=== PATIENT | male | born 1935 | race Caucasian/White ===

== ENCOUNTER 2016-09-09 22:05 | Inpatient (IN) | payer MEDICARE, BC ==
--- NOTE | ~2016-09-09 | HP ---
History And Physical [facility] [address] [place]. [address] NAME: STANLEY VERDUZCO : 37 STATUS : ADM IN [facility]#: [id number] AGE: 81 ADM/REG DATE : 09/10/16 MR#: [id number] REPORT SERV DATE: 09/10/16 DICTATED BY: STANLEY LOZANO DATE: 09/10/16 REPORT STATUS : Draft TRANSCRIBED BY: MODL DATE: 09/10/16 DATE OF ADMISSION: 09/09/2016 POINT OF ENTRY: [facility] Emergency Department. CHIEF COMPLAINT: Fevers, confusion, and lethargy. HISTORY OF PRESENT ILLNESS: Mr. Verduzco is an 81-year-old gentleman with a history of Parkinson disease, vascular dementia, history of multiple prior cerebrovascular accidents and TIAs, chronic kidney stage III to stage IV as well as dysphagia who is brought to the emergency room today by his for reports of low-grade fevers with associated confusion as well as sedation and lethargy. has noted for the past two days that he has been intermittently confused thinking that he was at the hospital. She stated that beginning about 2 p.m. today, she started to notice low-grade fevers as high as 100.4 degrees Fahrenheit as well as generally being unresponsive and sedated and lethargic. [facility] came out to evaluate patient today and recommended that he be transferred to the emergency department given concern for underlying infection and possible sepsis. The patient is confused and very hard of hearing and unfortunately unable to provide any history. All history is obtained from the patient's as well as review of [facility], [facility], and the ER record. states that he is always short of breath. She does not appreciate any recent changes. He has not been coughing or producing sputum. During his recent hospitalization in July, he did fail his swallow study. However, he continues to eat by mouth. She states that he occasionally will get choked up, but she has not witnessed any jeffrey aspiration events in the last few days. Initial evaluation in the emergency department notable for a blood pressure 90/56, but was afebrile. Labs noted for a white count 17,200. Chest x-ray concerning for right greater than left lower lobe infiltrate. CT scan of the brain was unremarkable for any acute changes. The patient was subsequently admitted to the Hospitalist Service for further evaluation and management. REVIEW OF SYSTEMS: Comprehensive review of systems otherwise negative unless listed in history of present illness. PAST MEDICAL HISTORY: 1. Parkinson disease. 2. Vascular dementia. 3. Dysphagia and aspiration risk. 4. Insulin-dependent diabetes mellitus type 2. Hemoglobin A1c of 7.3 with associated diabetic neuropathy and retinopathy. 5. Peripheral vascular disease. 6. Chronic kidney stage III to stage IV. Baseline creatinine 1.8 to 2.0. History And Physical [address] [address] NAME: STANLEY VERDUZCO : 37 STATUS : ADM IN PAT#: [id number] AGE: 81 ADM/REG DATE : 09/10/16 MR#: [id number] REPORT SERV DATE: 09/10/16 DICTATED BY: STANLEY LOZANO DATE: 09/10/16 REPORT STATUS : Draft TRANSCRIBED BY: EPIFANIO DATE: 09/10/16 7. Coronary artery disease with prior coronary artery bypass grafting. 8. Chronic systolic congestive heart failure with ejection fraction of 40%. 9. History of multiple prior cerebrovascular accidents and TIAs. 10.Hypertension. 11.Peptic ulcer disease. 12.Peripheral neuropathy. 13.Severe hearing impairment. SURGICAL HISTORY: 1. Right BKA. 2. Femoral-popliteal. 3. CABG. 4. TURP. 5. Cholecystectomy. ALLERGIES: IV CONTRAST, CODEINE, AND NARCOTICS. HOME MEDICATIONS: 1. Aspirin 325 mg at bedtime. 2. Calmoseptine ointment topical p.r.n. 3. Lasix 20 mg daily. 4. Gabapentin 300 mg b.i.d. 5. Gabapentin 300 mg p.r.n. 6. Hydralazine 12.5 mg at bedtime. 7. Insulin sliding scale. 8. Lantus 14 units b.i.d. 9. Lopressor 25 mg at bedtime. 10.Omeprazole 20 mg b.i.d. 11.Pravastatin 10 mg at bedtime. 12.Risperdal 1 mg b.i.d. 13.Sertraline 100 mg b.i.d. 14.Zinc oxide topical daily p.r.n. SOCIAL HISTORY: Denies any tobacco, alcohol, or illicits. FAMILY MEDICAL HISTORY: Mother with coronary artery disease. Father with congestive heart failure and coronary artery disease. Sibling with history of esophageal cancer. LABS AND IMAGIN. White count 17.2, hemoglobin 11.7, hematocrit is 35.8, platelet count is 309, INR 1.1. 2. Sodium is 138, potassium 4.6, chloride 99, carbon dioxide 29, BUN 59, creatinine 2.24, glucose is 207, calcium 9.2, protein 8.1, albumin is 2.9, bilirubin is 0.6, ALT is 15, AST 14, alkaline phosphatase is 101. 3. Lipase is 58. 4. Lactic acid 1.7. 5. BNP is 219. 6. Flu swab was negative. History And Physical [address] [address] NAME: STANLEY VERDUZCO : 37 STATUS : ADM IN [facility]#: [id number] AGE: 81 ADM/REG DATE : 09/10/16 MR#: [id number] REPORT SERV DATE: 09/10/16 DICTATED BY: STANLEY LOZANO DATE: 09/10/16 REPORT STATUS : Draft TRANSCRIBED BY: EPIFANIO DATE: 09/10/16 Chest x-ray per my review shows some mild cardiomegaly as well as right greater than left lower lobe infiltrates. CT scan of the brain shows no acute intracranial abnormality, does show evidence of an old left frontal cerebrovascular accident as well as generalized atrophy as well as chronic involutional changes and deep white matter changes. PHYSICAL EXAMINATION: VITAL SIGNS: Temperature is 98.0 degrees Fahrenheit, pulse is 78, respirations 18, saturating 95% on room air. Blood pressure is 90/56. On recheck, blood pressure is 106/42, pulse of 59. GENERAL: The patient is awake. He is somewhat sedated and lethargic, and extremely hard of hearing. He is a chronically ill-appearing, elderly male. is not at bedside. HEENT: Atraumatic and normocephalic. Slightly dry mucous membranes. Pupils are equal, round, reactive to light and accommodation. Extraocular eye movements are intact. No scleral icterus. NECK: No jugular venous distention. No carotid bruits. CARDIAC: Regular rate and rhythm. No murmurs or gallops. Normal S1, S2. LUNGS: Poor inspiratory effort with some decreased breath sounds in bilateral bases. ABDOMEN: Soft, nontender, nondistended. Good bowel sounds. No rebound, guarding, rigidity. EXTREMITIES: Status post right BKA. Left lower extremity is warm and well perfused. No cyanosis, clubbing, or edema. SKIN: Warm and dry. PSYCH: Difficult to assess given patient is hard of hearing as well as altered mental status. NEURO: He is somewhat sedated and lethargic, but awakens to verbal stimuli. Neurologic exam is very limited given his severe hard of hearing. Cranial nerves 2-12 appear to be grossly intact. Speech is normal. Gait not assessed. ASSESSMENT AND PLAN: Mr. Verduzco is an 81-year-old gentleman with multiple medical comorbidities, who presents with a one-day history of low-grade fevers, sedation, lethargy, and confusion, and found to have evidence of pneumonia as well as sepsis with associated toxic metabolic encephalopathy. PROBLEM LIST: 1. Pneumonia, concern for aspiration pneumonia. 2. Sepsis. 3. Toxic metabolic encephalopathy. 4. Acute kidney injury on chronic kidney stage 4. 5. History of dysphagia and aspiration risk. 6. Insulin-dependent diabetes mellitus type 2. 7. Chronic systolic congestive heart failure ejection fraction 40%. PLAN: 1. Pneumonia, concern for possible aspiration given recent failed swallow study. We will place the patient on IV Zosyn. We will try to obtain sputum culture, check urinary History And Physical [address] [address] NAME: STANLEY VERDUZCO : 37 STATUS : ADM IN [facility]#: [id number] AGE: 81 ADM/REG DATE : 09/10/16 MR#: [id number] REPORT SERV DATE: 09/10/16 DICTATED BY: STANLEY LOZANO DATE: 09/10/16 REPORT STATUS : Draft TRANSCRIBED BY: MODL DATE: 09/10/16 pneumoniae antigens. Blood cultures have already been obtained. 2. Sepsis. The patient meets criteria technically with fevers as well as leukocytosis. Blood cultures have been obtained. Lactic acid within normal limits. We will check a procalcitonin level, treat with IV fluids and antibiotics. 3. Encephalopathy, likely toxic metabolic. The patient's encephalopathy is likely secondary to underlying infection and sepsis. We will hold sedating medications, checking alternative etiologies such as thyroid function studies, ammonia level, vitamin B12. CT scan of brain was unremarkable. 4. Acute kidney injury on chronic kidney stage 4. The patient's BUN and creatinine are slightly above his recent baseline. We will hold his diuretic, provide some gentle IV fluid hydration given history of chronic systolic congestive heart failure. 5. Insulin-dependent diabetes mellitus type 2. We will continue patient's long-acting insulin and put him on a long insulin sliding scale. 6. History of dysphagia and aspiration risk. We will ask Speech Therapy to see patient in consultation. In the meantime, we will make the patient nothing by mouth at least tonight. 7. DVT prophylaxis. Heparin subcu. CODE STATUS: The patient is DNR DNI with no heroic measures. This was confirmed with . JCB/MODL Stanley Lozano MD / [id number] CC: Nacho Biggs M.D.
--- NOTE | ~2016-09-09 | DS ---
Discharge Summary [facility] [address] [place]. [address] NAME: STANLEY NOVA : 37 STATUS : DIS IN PAT#: [id number] AGE: 81 ADM/REG DATE : 09/10/16 MR#: [id number] REPORT SERV DATE: 09/17/16 DICTATED BY: KELLI MELENDEZ DATE: 09/16/16 REPORT STATUS : Draft TRANSCRIBED BY: MODL DATE: 09/16/16 ADMISSION DATE: 09/10/2016 DISCHARGE DATE: 09/16/2016 CONDITION ON DISCHARGE: Stable. DISPOSITION: Transfer to SNF. DISCHARGE DIAGNOSES: 1. Aspiration pneumonia. This has resolved with the patient having received a 5-day course of IV Zosyn. Further continuation of this antibiotic is not necessary as the patient is not hypoxic and lungs sound almost 80% clear right now. 2. Other chronic medical issues that are stable at this time include chronic aspiration as the patient has had multiple strokes before, Parkinson disease, vascular dementia, which basically set the stage for chronic aspiration in this patient. However, per the patient's wishes, the patient refuses a feeding tube and is not a candidate for feeding tube placement at this time. 3. Other chronic illnesses also include insulin-dependent diabetes mellitus type 2, hemoglobin A1c of 7.3 with diabetic neuropathy and retinopathy. 4. Chronic kidney disease, stage 3 to 4 with baseline creatinine around 1.8. 5. Peripheral vascular disease. 6. Coronary artery disease, status post coronary artery bypass graft, which is stable at this time. 7. Chronic diastolic dysfunction of the heart along with some systolic component too with an ejection fraction of about 40%. 8. History of several cerebrovascular accident and transient ischemic attacks in the past. BRIEF HOSPITAL COURSE: Please see history and physical exam for detailed diagnosis on this patient. However, the patient is an 81-year-old white male patient who was admitted with the diagnosis of aspiration pneumonia. The patient was started on intravenous Zosyn appropriately and given supportive and symptomatic care. The patient's condition improved with intravenous Zosyn, and currently, he is not even requiring any supplemental oxygen and breathing comfortably. Most of his lungs are clear also. In the meantime, while in the hospital, we consulted Palliative Care per 's wishes. Dr. Hsu was kind enough to see the patient; however, after discussion, the patient is not a hospice candidate at this time according to family, so they did not want hospice involved currently at this time, but the patient's code status is a DNR status. DISCHARGE MEDICATIONS: The patient hence is being transferred to retirement facility with the following medications: 1. Aspirin 325 mg once a day. 2. Furosemide 20 mg p.o. b.i.d. 3. Gabapentin 300 mg p.o. b.i.d. and 300 mg p.o. daily p.r.n. 4. Insulin sliding scale as he takes at home. 5. Lantus insulin 14 units subcutaneously twice a day. 6. Metoprolol 25 mg twice a day, note increase. Discharge Summary [address] [place]. [address] NAME: STANLEY NOVA : 37 STATUS : DIS IN PAT#: [id number] AGE: 81 ADM/REG DATE : 09/10/16 MR#: [id number] REPORT SERV DATE: 09/17/16 DICTATED BY: KELLI MELENDEZ DATE: 09/16/16 REPORT STATUS : Draft TRANSCRIBED BY: EPIFANIO DATE: 09/16/16 The patient will also be going to rehab on: 1. Pravastatin 10 mg once at bedtime. 2. Risperdal 1 mg p.o. b.i.d. 3. Zoloft 100 mg p.o. b.i.d. 4. No hydralazine at this time. I have discontinued the 12.5 mg of hydralazine that he was taken at bedtime at this time. 5. The patient will continue taking Tylenol 650 mg every four hours p.r.n. for arm pain. Along with this, the patient will continue to use his Desitin cream, applied to groin area, and Calmoseptine p.r.n. LABORATORY DATA: The most recent labs I have on this patient include the following: On 09/16/2016, his CBC shows a WBC count of 8.8, hemoglobin 10.1, hematocrit 30.8, platelet count of 275. His electrolyte profile shows sodium of 142, potassium of 4.6, BUN 25, creatinine 1.6 which is pretty much his baseline. Blood glucose levels have all been mostly under 200 and controlled with the current insulin regimen. Blood cultures so far have come back with no growth at four days. Pertinent radiological studies mainly include a CT scan of the brain without contrast that was done that shows no acute CVA, but moderately advanced diffuse cerebral involutional changes and a large old CVA in the anterior left inferior frontal lobe. The patient also had a chest x-ray on 09/10/2016 that shows mild fullness of the pulmonary vasculature with low lung volumes and bibasilar atelectasis and status post CABG, but no acute infiltrate. However, because the patient was symptomatic, aspiration pneumonia was appropriately diagnosed without any significant x-ray changes, however. Hence, the patient is being discharged to most likely a retirement facility in stable condition, and I have spent about 40 minutes in coordinating discharge care of this patient. RRA/MODL Kelli Melendez M.D. / [id number] CC: Andrade Price M.D.
--- NOTE | ~2016-09-09 | CN ---
Consultation Report [facility] [address] [place]. [address] NAME: STANLEY NOVA : 37 STATUS : ADM IN PAT#: [id number] AGE: 81 ADM/REG DATE : 09/10/16 MR#: [id number] REPORT SERV DATE: 09/13/16 DICTATED BY: CAITLIN DURAN DATE: 09/13/16 REPORT STATUS : Draft TRANSCRIBED BY: MODL DATE: 09/13/16 PALLIATIVE CARE CONSULTATION DATE OF CONSULTATION: 09/13/2016 The patient has been previously seen by us in April of 2016. Please refer to my original consultation. The patient is readmitted to the hospital on 09/09/2016 with evidence of confusion, fevers, and lethargy. He has been found to probably have an aspiration pneumonia. He has a plethora of other medical difficulties, which will not be reiterated. He lives at home with his , who is his primary caregiver. Conversations with him in the past have centered around wanting to add hospice to his care and he has been somewhat resistant to that. He is evidently from what I can tell from the discussions the palliative care RN has been on the phone with her and it is evidently the who is now somewhat resistant to this process. Unfortunately, he continues to have progressive neurological decline, dysphagia and difficulty swallowing, and his swallowing study is reported as showing silent aspiration and deep penetration with honey by teaspoon, nectar by teaspoon with putting these evidently residual and silent aspiration as well. At this point, the is intending to take him home and continue his care. On examination today, I see him in his bed. He has clear seborrhea and have stigmata of Parkinson disease including a mask-like facies. He denies pain at this time. PHYSICAL EXAMINATION: VITAL SIGNS: Blood pressure is 180/80, his respiratory rate 16 to 18 with some slight congestion, his temperature is 99 degrees, his pulse is 70 to 74, and does have some irregularity to it. Telemetry shows sinus rhythm. HEENT: The head is normocephalic. There is some mild temporal wasting. There is greasiness about his hair and face. His pupils are reactive. His face is masklike. His speech is weak, garbled with his mouth opening probably half way to speak. LUNGS: He does have decreased breath sounds and rhonchi in both bases posteriorly. HEART: Shows a regular rate and rhythm for the most part. There is some ectopy noted. ABDOMEN: Unremarkable. EXTREMITIES: Show increased tone. There is a bit of rigidity present. He does have 1 to 2+ edema in his lower extremities. IMPRESSION, PLAN, AND DISCUSSION: This is an unfortunate 81-year-old male with progressive signs of parkinsonism now with aspiration. The was not willing to consider a PEG tube and will continue to feed him. The patient is a DNR at this point, and I suspect that Consultation Report [place] [id number] [place]. [address] NAME: STANLEY NOVA : 37 STATUS : ADM IN [facility]#: [id number] AGE: 81 ADM/REG DATE : 09/10/16 MR#: [id number] REPORT SERV DATE: 09/13/16 DICTATED BY: CAITLIN DURAN DATE: 09/13/16 REPORT STATUS : Draft TRANSCRIBED BY: MODL DATE: 09/13/16 unfortunately, he will continue to have episodes of pneumonia as his course progresses. Hospice services were discussed with her and, as noted above since he had previously rejected them, I think she is doing so on his behalf. Unfortunately given his physical size, his medical complications, et cetera, I think he would be an excellent candidate for hospice services, but I also expect that she is going to be bringing him back to the hospital with his next major aspiration episode. We will look forward to be available to continue to try and facilitate a referral for more appropriate care situation should he be readmitted. Consult went from 1315 to 1350. Total of 40 minutes were spent with the patient, on the phone with the , and then preparation of report. RWG/MODL Caitlin Duran M.D. / [id number] CC: Andrade Price M.D.
[2016-09-09 21:09] LABS: BASOPHILS 0.2 %; BASOPHILS ABSOLUTE 0.04 10/3/uL (0.0-0.16); EOSINOPHILS 1.1 %; EOSINOPHILS ABSOLUTE 0.19 10/3/uL (0.0-0.53); HEMATOCRIT 35.8 % (40.0-51.0); HEMOGLOBIN 11.7 g/dL (13.6-17.8); IMMATURE GRANULOCYTES 0.3 %; IMMATURE GRANULOCYTES ABSOLUTE 0.05 10/3/uL (0.0-0.11); LYMPHOCYTES 8.1 %; LYMPHOCYTES ABSOLUTE 1.39 10/3/uL (0.67-4.30); MEAN CORPUS HGB CONC 32.7 g/dL (32.0-36.0); MEAN CORPUSCULAR VOLUME 85.6 fL (80-100); MEAN PLATELET VOLUME 10.2 fL (9.2-13.0); MONOCYTES 4.7 %; NEUTROPHILS 85.6 %; PLATELET COUNT 309 10/3/uL (150-400); RBC DISTRIBUTION WIDTH 14.3 % (12.0-16.0); RED CELL COUNT 4.18 10/6/uL (4.7-6.1)
[2016-09-09 21:10] LABS: ER CBC TAT 0 Hrs 05 Mins; MANUAL DIFF NO %; WHITE BLOOD CELLS 17.2 10/3/uL (4.5-10.5)
[2016-09-09 21:18] LABS: INTERNATIONAL NORMAL RATI 1.1 UNITS (-); PARTIAL THROMBO TIME 29.5 SEC (22.5-37.2); PROTIME (NOT ORD) 13.9 SEC (12.0-14.5)
[2016-09-09 21:26] LABS: INFLUENZA A SCREEN NEGATIVE (NEGATIVE); INFLUENZA B SCREEN NEGATIVE (NEGATIVE)
[2016-09-09 21:26] LABS: A/G RATIO 0.6 (0.7-1.9); ALBUMIN 2.9 G/DL (3.5-5.0); ALKALINE PHOSPHATASE 101 U/L (45-117); BUN (BLOOD UREA NITROGEN) 59 MG/DL (6-23); CALCIUM, SERUM 9.2 MG/DL (8.5-10.4); CHLORIDE, SERUM 99 MMOL/L (96-112); CO2 (CARBON DIOXIDE) 29 MMOL/L (24-34); CREATININE 2.24 MG/DL (0.70-1.30); GFR AFRICAN AMERICAN 31 ML/MIN (>=60); GFR NON AFRICAN AMERICAN 27 ML/MIN (>=60); GLOBULIN 5.2 G/DL (2.5-4.1); GLUCOSE, SERUM 207 MG/DL (60-99); POTASSIUM, SERUM 4.6 MMOL/L (3.5-5.3); SGOT(AST) 14 U/L (5-40); SGPT(ALT) 15 U/L (5-65); SODIUM, SERUM 138 MMOL/L (135-148); TOTAL BILIRUBIN 0.6 MG/DL (0-1.2); TOTAL PROTEIN 8.1 G/DL (6.0-8.5)
[2016-09-09 21:27] LABS: LACTATE 1.7 MMOL/L (0.3-2.4)
[~2016-09-09 22:05] MED LIST: AMOXIL500 MG PO; APRES25 PO; APRES50 PO; ASAB PO; ASABAYER PO; ASAEC PO; B1100 PO; B12250T; CEFT5 PO; FLUOCINONIDE0.05 % TOP; FOLIC PO; HALF81 PO; HYDROCHLOROT25 MG PO; IMDUR30 PO; IMOD PO; ISORDIL10 PO; ISORDIL20 PO; K250 PO; KLOR-CON20 MEQ PO; L20 PO; L40 PO; L80 PO; LANTUS SC; LANTUSCART SC; LIPITOR10 PO; LIPITOR80 MG PO; LOP25 PO; LOP50 PO; NEUR300 PO; NOVOPEN SC; NOVOPEN SQ; PLAVIX PO; PRAV10 PO; PRAVAC PO; PRAVACHOL40 MG PO; PRILO PO; PRILOSEC10 MG PO; PRILOSEC40 MG PO; PRIN10 PO; RISP1 PO; RISPERDAL M1 MG PO; SEROQUEL50 MG PO; SIN25 PO; T PO; THERGRANM; VITAMIN B-122500 MCG PO; VITD PO; ZOL100 PO
[2016-09-09] MEDS ORDERED: DESITIN TOP (22:40)
[2016-09-09] MEDS ORDERED: CALMOSEPTINE TOP (22:41)
[2016-09-09] MEDS ORDERED: PRAV10 PO (22:46)
[2016-09-09] MEDS ORDERED: NEUR300 PO (22:47)
[2016-09-10 01:27] LABS: ASCORBIC ACID (UR NOT ORDER) 40 (NEG); BILIRUBIN, URINE NEGATIVE (NEG); ER URINALYSIS TAT 0 Hrs 00 Mins; KETONE, URINE NEGATIVE (NEG); LEUKOCYTE ESTERASE(NOT OR NEG (NEG); NITRITE (URINE) NEG (NEG); WBC (NOT ORDERED) (RFLEX) 1 (0-5)
[2016-09-10 07:12] LABS: FREE T4 0.87 NG/DL (0.76-1.46); ULTRASENSITIVE TSH 2.78 MCIU/ML (0.358-3.740)
[2016-09-10 07:48] LABS: PROCALCITONIN 0.36 ng/mL (<0.5)
[2016-09-10 14:55] LABS: BASOPHILS 0.7 %; BASOPHILS ABSOLUTE 0.06 10/3/uL (0.0-0.16); EOSINOPHILS 2.9 %; EOSINOPHILS ABSOLUTE 0.26 10/3/uL (0.0-0.53); HEMATOCRIT 33.1 % (40.0-51.0); IMMATURE GRANULOCYTES 0.5 %; IMMATURE GRANULOCYTES ABSOLUTE 0.04 10/3/uL (0.0-0.11); LYMPHOCYTES 11.3 %; MEAN CORPUS HGB CONC 33.2 g/dL (32.0-36.0); MEAN CORPUSCULAR HEMOGLOB 28.6 pg (26.0-34.0); MEAN PLATELET VOLUME 10.2 fL (9.2-13.0); MONOCYTES 5.5 %; MONOCYTES ABSOLUTE 0.49 10/3/uL (0.21-1.20); NEUTROPHILS 79.1 %; NEUTROPHILS ABSOLUTE 6.98 10/3/uL (2.02-8.40); PLATELET COUNT 245 10/3/uL (150-400); RBC DISTRIBUTION WIDTH 14.3 % (12.0-16.0); RED CELL COUNT 3.85 10/6/uL (4.7-6.1)
[2016-09-10 14:56] LABS: MANUAL DIFF NO %; WHITE BLOOD CELLS 8.8 10/3/uL (4.5-10.5)
[2016-09-10 15:32] LABS: ALBUMIN 2.6 G/DL (3.5-5.0); CALCIUM, SERUM 8.6 MG/DL (8.5-10.4); CHLORIDE, SERUM 108 MMOL/L (96-112); CO2 (CARBON DIOXIDE) 27 MMOL/L (24-34); CREATININE 1.85 MG/DL (0.70-1.30); GFR AFRICAN AMERICAN 39 ML/MIN (>=60); GFR NON AFRICAN AMERICAN 34 ML/MIN (>=60); POTASSIUM, SERUM 3.9 MMOL/L (3.5-5.3); SODIUM, SERUM 144 MMOL/L (135-148)
[2016-09-10 15:34] LABS: BUN (BLOOD UREA NITROGEN) 48 MG/DL (6-23); FOLATE 14.5 NG/ML (>5.2); GLUCOSE, SERUM 135 MG/DL (60-99)
[2016-09-11 07:07] LABS: BASOPHILS 0.5 %; BASOPHILS ABSOLUTE 0.04 10/3/uL (0.0-0.16); EOSINOPHILS 5.4 %; EOSINOPHILS ABSOLUTE 0.45 10/3/uL (0.0-0.53); HEMATOCRIT 30.2 % (40.0-51.0); HEMOGLOBIN 9.9 g/dL (13.6-17.8); IMMATURE GRANULOCYTES 0.2 %; IMMATURE GRANULOCYTES ABSOLUTE 0.02 10/3/uL (0.0-0.11); LYMPHOCYTES 18.3 %; LYMPHOCYTES ABSOLUTE 1.52 10/3/uL (0.67-4.30); MEAN CORPUS HGB CONC 32.8 g/dL (32.0-36.0); MEAN CORPUSCULAR HEMOGLOB 28.2 pg (26.0-34.0); MEAN PLATELET VOLUME 9.7 fL (9.2-13.0); MONOCYTES 7.5 %; MONOCYTES ABSOLUTE 0.62 10/3/uL (0.21-1.20); NEUTROPHILS 68.1 %; NEUTROPHILS ABSOLUTE 5.67 10/3/uL (2.02-8.40); PLATELET COUNT 253 10/3/uL (150-400); RBC DISTRIBUTION WIDTH 14.4 % (12.0-16.0); RED CELL COUNT 3.51 10/6/uL (4.7-6.1); WHITE BLOOD CELLS 8.3 10/3/uL (4.5-10.5)
[2016-09-11 07:09] LABS: MANUAL DIFF NO %
[2016-09-11 07:17] LABS: CALCIUM, SERUM 8.6 MG/DL (8.5-10.4); CHLORIDE, SERUM 109 MMOL/L (96-112); CO2 (CARBON DIOXIDE) 25 MMOL/L (24-34); CREATININE 1.75 MG/DL (0.70-1.30); GFR AFRICAN AMERICAN 42 ML/MIN (>=60); GFR NON AFRICAN AMERICAN 36 ML/MIN (>=60); POTASSIUM, SERUM 3.7 MMOL/L (3.5-5.3); SODIUM, SERUM 144 MMOL/L (135-148)
[2016-09-11 07:18] LABS: BUN (BLOOD UREA NITROGEN) 39 MG/DL (6-23); GLUCOSE, SERUM 106 MG/DL (60-99)
[2016-09-12 06:17] LABS: BASOPHILS 0.6 %; BASOPHILS ABSOLUTE 0.04 10/3/uL (0.0-0.16); EOSINOPHILS 5.8 %; EOSINOPHILS ABSOLUTE 0.41 10/3/uL (0.0-0.53); HEMATOCRIT 28.6 % (40.0-51.0); HEMOGLOBIN 9.4 g/dL (13.6-17.8); IMMATURE GRANULOCYTES 0.6 %; IMMATURE GRANULOCYTES ABSOLUTE 0.04 10/3/uL (0.0-0.11); LYMPHOCYTES 25.4 %; LYMPHOCYTES ABSOLUTE 1.81 10/3/uL (0.67-4.30); MANUAL DIFF NO %; MEAN CORPUS HGB CONC 32.9 g/dL (32.0-36.0); MEAN CORPUSCULAR HEMOGLOB 28.1 pg (26.0-34.0); MEAN CORPUSCULAR VOLUME 85.6 fL (80-100); MONOCYTES 7.7 %; MONOCYTES ABSOLUTE 0.55 10/3/uL (0.21-1.20); NEUTROPHILS 59.9 %; NEUTROPHILS ABSOLUTE 4.28 10/3/uL (2.02-8.40); PLATELET COUNT 268 10/3/uL (150-400); RBC DISTRIBUTION WIDTH 14.3 % (12.0-16.0); RED CELL COUNT 3.34 10/6/uL (4.7-6.1); WHITE BLOOD CELLS 7.1 10/3/uL (4.5-10.5)
[2016-09-12 06:29] LABS: CALCIUM, SERUM 8.8 MG/DL (8.5-10.4); CHLORIDE, SERUM 111 MMOL/L (96-112); CO2 (CARBON DIOXIDE) 25 MMOL/L (24-34); CREATININE 1.53 MG/DL (0.70-1.30); GFR AFRICAN AMERICAN 49 ML/MIN (>=60); GFR NON AFRICAN AMERICAN 42 ML/MIN (>=60); POTASSIUM, SERUM 3.7 MMOL/L (3.5-5.3); SODIUM, SERUM 146 MMOL/L (135-148)
[2016-09-12 06:30] LABS: BUN (BLOOD UREA NITROGEN) 30 MG/DL (6-23); GLUCOSE, SERUM 66 MG/DL (60-99)
[2016-09-13 04:43] LABS: BASOPHILS 0.6 %; BASOPHILS ABSOLUTE 0.05 10/3/uL (0.0-0.16); EOSINOPHILS 5.4 %; EOSINOPHILS ABSOLUTE 0.48 10/3/uL (0.0-0.53); HEMATOCRIT 29.4 % (40.0-51.0); HEMOGLOBIN 9.6 g/dL (13.6-17.8); IMMATURE GRANULOCYTES 0.6 %; IMMATURE GRANULOCYTES ABSOLUTE 0.05 10/3/uL (0.0-0.11); LYMPHOCYTES 19.7 %; LYMPHOCYTES ABSOLUTE 1.74 10/3/uL (0.67-4.30); MEAN CORPUS HGB CONC 32.7 g/dL (32.0-36.0); MEAN CORPUSCULAR HEMOGLOB 28.2 pg (26.0-34.0); MEAN CORPUSCULAR VOLUME 86.5 fL (80-100); MEAN PLATELET VOLUME 9.9 fL (9.2-13.0); MONOCYTES 6.7 %; MONOCYTES ABSOLUTE 0.59 10/3/uL (0.21-1.20); NEUTROPHILS ABSOLUTE 5.92 10/3/uL (2.02-8.40); PLATELET COUNT 249 10/3/uL (150-400); RBC DISTRIBUTION WIDTH 14.7 % (12.0-16.0); WHITE BLOOD CELLS 8.8 10/3/uL (4.5-10.5)
[2016-09-13 04:47] LABS: MANUAL DIFF NO %
[2016-09-13 04:52] LABS: CHLORIDE, SERUM 110 MMOL/L (96-112); CO2 (CARBON DIOXIDE) 25 MMOL/L (24-34); CREATININE 1.67 MG/DL (0.70-1.30); GFR AFRICAN AMERICAN 44 ML/MIN (>=60); GFR NON AFRICAN AMERICAN 38 ML/MIN (>=60); PHOSPHORUS, SERUM 2.5 MG/DL (2.5-4.5); SODIUM, SERUM 144 MMOL/L (135-148)
[2016-09-13 04:55] LABS: BUN (BLOOD UREA NITROGEN) 26 MG/DL (6-23); GLUCOSE, SERUM 312 MG/DL (60-99); POTASSIUM, SERUM 4.5 MMOL/L (3.5-5.3)
[2016-09-14 04:47] LABS: BASOPHILS 0.5 %; BASOPHILS ABSOLUTE 0.05 10/3/uL (0.0-0.16); EOSINOPHILS 5.2 %; EOSINOPHILS ABSOLUTE 0.49 10/3/uL (0.0-0.53); HEMATOCRIT 28.9 % (40.0-51.0); HEMOGLOBIN 9.4 g/dL (13.6-17.8); IMMATURE GRANULOCYTES 0.6 %; IMMATURE GRANULOCYTES ABSOLUTE 0.06 10/3/uL (0.0-0.11); LYMPHOCYTES 22.4 %; LYMPHOCYTES ABSOLUTE 2.12 10/3/uL (0.67-4.30); MEAN CORPUS HGB CONC 32.5 g/dL (32.0-36.0); MEAN CORPUSCULAR HEMOGLOB 28.1 pg (26.0-34.0); MEAN CORPUSCULAR VOLUME 86.5 fL (80-100); MEAN PLATELET VOLUME 9.8 fL (9.2-13.0); MONOCYTES 6.4 %; MONOCYTES ABSOLUTE 0.61 10/3/uL (0.21-1.20); NEUTROPHILS 64.9 %; NEUTROPHILS ABSOLUTE 6.14 10/3/uL (2.02-8.40); PLATELET COUNT 253 10/3/uL (150-400); RBC DISTRIBUTION WIDTH 14.6 % (12.0-16.0); RED CELL COUNT 3.34 10/6/uL (4.7-6.1); WHITE BLOOD CELLS 9.5 10/3/uL (4.5-10.5)
[2016-09-14 04:48] LABS: MANUAL DIFF NO %
[2016-09-14 04:55] LABS: BUN (BLOOD UREA NITROGEN) 23 MG/DL (6-23); CALCIUM, SERUM 9.1 MG/DL (8.5-10.4); CHLORIDE, SERUM 112 MMOL/L (96-112); CO2 (CARBON DIOXIDE) 26 MMOL/L (24-34); CREATININE 1.67 MG/DL (0.70-1.30); GFR AFRICAN AMERICAN 44 ML/MIN (>=60); GFR NON AFRICAN AMERICAN 38 ML/MIN (>=60); POTASSIUM, SERUM 4.2 MMOL/L (3.5-5.3); SODIUM, SERUM 144 MMOL/L (135-148)
[2016-09-14 04:58] LABS: GLUCOSE, SERUM 88 MG/DL (60-99)
[2016-09-15 04:42] LABS: BASOPHILS 0.7 %; BASOPHILS ABSOLUTE 0.06 10/3/uL (0.0-0.16); EOSINOPHILS 6.7 %; HEMATOCRIT 28.4 % (40.0-51.0); HEMOGLOBIN 9.3 g/dL (13.6-17.8); IMMATURE GRANULOCYTES 0.9 %; IMMATURE GRANULOCYTES ABSOLUTE 0.08 10/3/uL (0.0-0.11); LYMPHOCYTES ABSOLUTE 2.05 10/3/uL (0.67-4.30); MEAN CORPUS HGB CONC 32.7 g/dL (32.0-36.0); MEAN CORPUSCULAR HEMOGLOB 27.9 pg (26.0-34.0); MEAN CORPUSCULAR VOLUME 85.3 fL (80-100); MEAN PLATELET VOLUME 9.8 fL (9.2-13.0); MONOCYTES 7.3 %; MONOCYTES ABSOLUTE 0.65 10/3/uL (0.21-1.20); NEUTROPHILS 61.4 %; NEUTROPHILS ABSOLUTE 5.49 10/3/uL (2.02-8.40); PLATELET COUNT 258 10/3/uL (150-400); RBC DISTRIBUTION WIDTH 14.8 % (12.0-16.0); RED CELL COUNT 3.33 10/6/uL (4.7-6.1); WHITE BLOOD CELLS 8.9 10/3/uL (4.5-10.5)
[2016-09-15 04:45] LABS: MANUAL DIFF NO %
[2016-09-15 04:48] LABS: BUN (BLOOD UREA NITROGEN) 24 MG/DL (6-23); CHLORIDE, SERUM 106 MMOL/L (96-112); CO2 (CARBON DIOXIDE) 26 MMOL/L (24-34); CREATININE 1.71 MG/DL (0.70-1.30); GFR AFRICAN AMERICAN 43 ML/MIN (>=60); GFR NON AFRICAN AMERICAN 37 ML/MIN (>=60); POTASSIUM, SERUM 4.3 MMOL/L (3.5-5.3); SODIUM, SERUM 141 MMOL/L (135-148)
[2016-09-15 04:50] LABS: GLUCOSE, SERUM 167 MG/DL (60-99)
[2016-09-16 04:28] LABS: HEMATOCRIT 30.8 % (40.0-51.0); HEMOGLOBIN 10.1 g/dL (13.6-17.8); MEAN CORPUS HGB CONC 32.8 g/dL (32.0-36.0); MEAN CORPUSCULAR HEMOGLOB 28.3 pg (26.0-34.0); MEAN CORPUSCULAR VOLUME 86.3 fL (80-100); MEAN PLATELET VOLUME 9.6 fL (9.2-13.0); PLATELET COUNT 275 10/3/uL (150-400); RBC DISTRIBUTION WIDTH 14.8 % (12.0-16.0); RED CELL COUNT 3.57 10/6/uL (4.7-6.1); WHITE BLOOD CELLS 8.8 10/3/uL (4.5-10.5)
[2016-09-16 04:31] LABS: MANUAL DIFF YES %
[2016-09-16 04:42] LABS: BUN (BLOOD UREA NITROGEN) 25 MG/DL (6-23); CALCIUM, SERUM 9.3 MG/DL (8.5-10.4); CHLORIDE, SERUM 108 MMOL/L (96-112); CO2 (CARBON DIOXIDE) 24 MMOL/L (24-34); CREATININE 1.66 MG/DL (0.70-1.30); GFR AFRICAN AMERICAN 44 ML/MIN (>=60); GFR NON AFRICAN AMERICAN 38 ML/MIN (>=60); POTASSIUM, SERUM 4.6 MMOL/L (3.5-5.3); SODIUM, SERUM 142 MMOL/L (135-148)
[2016-09-16 04:44] LABS: GLUCOSE, SERUM 130 MG/DL (60-99)
[2016-09-16 05:24] LABS: BASOPHILS 2 %; BASOPHILS ABSOLUTE (CALC) 0.18 10/3/uL (0.0-0.16); EOSINOPHILS 10 %; EOSINOPHILS ABSOLUTE (CALC) 0.88 10/3/uL (0.0-0.53); LYMPHOCYTES 23 %; LYMPHOCYTES ABSOLUTE (CALC) 2.02 10/3/uL (0.67-4.30); MONOCYTES 1 %; MONOCYTES ABSOLUTE (CALC) 0.09 10/3/uL (0.21-1.20); NEUTROPHILS ABSOLUTE (CALC) 5.63 10/3/uL (2.02-8.40); SEGMENTED NEUTROPHIL (0) 64 %; TOTAL NUCLEATED CELLS 100
[2016-09-16 05:26] LABS: ATYPICAL LYMPH OCC (0-2%) (0-5%); GIANT PLATELET OCC; PLATELET ESTIMATE ADQ (ADEQUATE)
[2016-09-16] MEDS ORDERED: HEPA50006 SC (15:07)
[2016-09-16] MEDS ORDERED: T PO (15:08)
[2017-01-02] MEDS ORDERED: ACET500CAP PO (20:15)
[2017-01-02] MEDS ORDERED: ASAB PO (20:16)
[2017-01-02] MEDS ORDERED: NORV25 PO (20:16)
[2017-01-02] MEDS ORDERED: CALMOSEPTINE O2.5 OZ TOP (20:17)
[2017-01-02] MEDS ORDERED: L40 PO (20:17)
[2017-01-02] MEDS ORDERED: NEUR300 PO ×2 (20:17)
[2017-01-02] MEDS ORDERED: NOVOLOG SC (20:18)
[2017-01-02] MEDS ORDERED: ZOL100 PO (20:18)
[2017-01-02] MEDS ORDERED: LANTUS SC (20:18)
[2017-01-02] MEDS ORDERED: RISP1 PO (20:18)
[2017-01-02] MEDS ORDERED: PRAV10 PO (20:18)
[2017-01-02] MEDS ORDERED: BRILINTA90 MG PO (20:19)
[2017-01-02] MEDS ORDERED: HARD NAILS PO (20:19)
[2017-01-02] MEDS ORDERED: LOP25 PO (20:20)
== END 2016-09-16 14:08 | DRG 177 ==
LOC: ER 22:05 → 7NO 09-10 01:12
PROVIDERS: Internal Medicine; Nurse Practitioner Acute Care; Specialist
DX: J69.0 Pneumonitis due to inhalation of food and vomit (principal); G92 Toxic encephalopathy; N17.9 Acute kidney failure, unspecified; I13.0 Hypertensive heart and chronic kidney disease with heart failure and stage 1 through stage 4 chronic kidney disease, or unspecified chronic kidney disease; I50.22 Chronic systolic (congestive) heart failure; G20 Parkinson's disease; F01.50 Vascular dementia, unspecified severity, without behavioral disturbance, psychotic disturbance, mood disturbance, and anxiety; R13.10 Dysphagia, unspecified; E11.40 Type 2 diabetes mellitus with diabetic neuropathy, unspecified; E11.319 Type 2 diabetes mellitus with unspecified diabetic retinopathy without macular edema; I73.9 Peripheral vascular disease, unspecified; E11.22 Type 2 diabetes mellitus with diabetic chronic kidney disease; I25.10 Atherosclerotic heart disease of native coronary artery without angina pectoris; N18.3 Chronic kidney disease, stage 3 (moderate); L21.9 Seborrheic dermatitis, unspecified; Z86.73 Personal history of transient ischemic attack (TIA), and cerebral infarction without residual deficits; Z87.11 Personal history of peptic ulcer disease; Z95.1 Presence of aortocoronary bypass graft; Z89.511 Acquired absence of right leg below knee; Z79.4 Long term (current) use of insulin; Z90.49 Acquired absence of other specified parts of digestive tract; Z82.49 Family history of ischemic heart disease and other diseases of the circulatory system; Z66 Do not resuscitate; Z51.5 Encounter for palliative care
CPT/HCPCS: 70450; 71010; 74230; 80048; 80053; 80069; 81001; 82140; 82607; 82746; 82962; 83605; 83690; 83735; 83880; 84100; 84145; 84439; 84443; 85025; 85610; 85730; 87040; 87449; 87804; 92526-GN; 92610-GN; 92611-GN; 96365; 97163-GP; 97166-GO; 97535-GO; 99285; A9270-GY; G8978-CM-GP; G8979-CK-GP; G8987-CL-GO; G8988-CK-GO; G8996-CN-GN; G8997-CN-GN; G8998-CN-GN; J0360; J2543; J3370

== ENCOUNTER 2016-09-29 23:34 | Inpatient (IN) | payer MEDICARE, BC ==
--- NOTE | ~2016-09-29 | IDS ---
Interim Discharge Summary [facility] [address] [place]. [address] NAME: STANLEY NOVA : 37 STATUS : ADM IN PAT#: [id number] AGE: 81 ADM/REG DATE : 09/30/16 MR#: [id number] REPORT SERV DATE: 10/04/16 DICTATED BY: KELLI MELENDEZ DATE: 10/04/16 REPORT STATUS : Draft TRANSCRIBED BY: MODAlma DATE: 10/04/16 ADMISSION DATE: 09/30/2016 DISCHARGE DATE: Date of transfer of this patient to my colleague is 10/05/2016. Diagnoses on this patient so far include the followin. Recent NSTEMI-a race steward has evaluated this patient and has suggested med management only. Brilinta has been added to this patient's medication regimen. The advice is to continue aspirin and beta manuel on this patient. He is asymptomatic currently and does not complain of any chest pain. 2. Other diagnoses that are chronic and multiple in this patient include the following: Chronic diastolic and systolic heart failure with an ejection fraction of 40%. 3. Ischemic cardiomyopathy from CAD, status post coronary artery bypass graft. 4. Peripheral arterial disease, status post right AKA. 5. Diabetes mellitus-insulin requiring which is stable in this patient. 6. Chronic kidney disease, stage IV with a baseline creatinine of about 1.82 which is also stable. 7. Chronic advanced dementia from Parkinson's, multiple stroke/CVA in the past and also vascular dementia-the patient's code status is a DNR status and the patient has been taken care of by his at home who so far has refused transfer of this patient to any [facility]. 8. Chronic aspiration from all the above problems and aspiration pneumonia for which the patient has received 5 days of IV Zosyn and hence will stop now. 9. His code status is a DNR as mentioned. BRIEF HOSPITAL COURSE: The patient is an 81-year-old white male patient, unfortunately with multiple chronic comorbidities and medical issues, presented with chest pain. He was admitted for a [id number] myocardial infarction, and Cardiology was consulted. At this time, given his condition and chronic medical issues. It was decided that he is a candidate for medical management only and Cardiology has started him on Brilinta along with aspirin and the beta manuel. Also the patient had difficulty breathing and it was diagnosed that he may have recurrently aspirated and was started on IV Zosyn. We will go ahead and finish the 5 day course of IV Zosyn that is typically given for aspiration pneumonia and will stop. The patient has chronic aspiration and is at definite risk for chronic aspiration which he is aware of and the is aware of and it is his choice that he does not want any feeding tube, and the family is extremely well aware of the risks of continuing to feed him. Hence, this patient will probably have chronic aspiration. All his other problems have been stable at this time and these include diabetes mellitus which is stable, chronic kidney disease, stage IV also stable, and chronic systolic heart failure with an ejection fraction of 40% which is stable with Lasix 40 mg twice a day. It is to be noted that this patient also has some psychotic features with dementia and hence he is a candidate for Seroquel. However 25 mg of Seroquel keeps him too sedated and hence I have reduced it to 12.5 mg p.o. at bedtime. Interim Discharge Summary [address] [place]. [address] NAME: STANLEY NOVA : 37 STATUS : ADM IN PAT#: [id number] AGE: 81 ADM/REG DATE : 09/30/16 MR#: [id number] REPORT SERV DATE: 10/04/16 DICTATED BY: KELLI MELENDEZ DATE: 10/04/16 REPORT STATUS : Draft TRANSCRIBED BY: EPIFANIO DATE: 10/04/16 It is also to be noted that for chronic Parkinson's, the patient is not a candidate for Sinemet as he tried him on Sinemet and the patient gets extremely agitated and starts pulling on his IV and gets extremely confused, psychotic, and agitated with the Sinemet, hence, the has requested us not to put him on any more of this medication, hence, this will not be started. Hence, for his Parkinson's, he is not on any medications at this time. His code status is a DNR and rightly so. At this time once he finishes his Zosyn and once his mental status improved slightly and he becomes less drowsy, the plan is to transfer him home with home health and home PT/OT according to the . If can be convinced that he can be transferred to SNF, then I guess it is appropriate to transfer this patient to senior living facility too as he is very debilitated with his chronic multiple comorbidities at 81 years of age. My colleague will be taking over this patient's care on 10/05/2016. DAVID/EPIFANIO Kelli Melendez M.D. / [id number] CC: Andrade Price M.D.
--- NOTE | ~2016-09-29 | HP ---
History And Physical [id number] [facility] [place]. [address] NAME: STANLEY NOVA : 37 STATUS : ADM IN [facility]#: [id number] AGE: 81 ADM/REG DATE : 09/30/16 MR#: [id number] REPORT SERV DATE: 09/30/16 DICTATED BY: LUCINDA GONZÁLES DATE: 09/30/16 REPORT STATUS : Draft TRANSCRIBED BY: MODL DATE: 09/30/16 DATE OF ADMISSION: 09/30/2016 CHIEF COMPLAINT: An 81-year-old male presenting with a main complaint of chest pain. HISTORY OF PRESENT ILLNESS: The patient's history was obtained through an interview with the patient, , coupled with review of [facility] medical records. The patient is chronically debilitated from a stroke that has left him with aphasia and vascular dementia. A week ago, patient awoke in the middle of the night with chest pain, and apparently, he has had intermittent chest pain over this last week, that is new on onset. He describes it in his upper chest radiating to his bilateral shoulders but is unable to give a precise quality or severity of the pain. Unfortunately, over this last week, he has also had increasing shortness of breath characterized, it seems, by dyspnea on exertion. He has a constant "gurgling" in his deep chest and throat. There have been no witnessed aspiration events. No cough. He has had no lower extremity edema issues, but his abdomen seems more distended to his . There has been no fevers or chills. No nausea or vomiting. No change of bowel or bladder habit. His had urged him to come to the hospital earlier this week, but the patient had refused until he developed chest pain on the evening of admission with increasing shortness of breath. REVIEW OF SYSTEMS: Otherwise, a 14-point review of systems was obtained and was negative. PAST MEDICAL HISTORY: 1. Systolic congestive heart failure. Ejection fraction 45%, 10/2015. 2. Aspiration pneumonia with dysphagia. 3. CABG, followed by Dr. Lester. 4. Left frontal and left parietal stroke. 5. Chronic kidney disease, stage 3. Baseline creatinine of 1.6 to 1.7. 6. Dementia. 7. Peptic ulcer disease, gastric polyps. Arterial venous malformations of the stomach, seen by Dr. Murrieta. 8. Colon polyps. 9. Diabetes. 10.Parkinson disease. History And Physical [address] [place]. [address] NAME: STANLEY NOVA : 37 STATUS : ADM IN PAT#: [id number] AGE: 81 ADM/REG DATE : 09/30/16 MR#: [id number] REPORT SERV DATE: 09/30/16 DICTATED BY: LUCINDA GONZÁLES DATE: 09/30/16 REPORT STATUS : Draft TRANSCRIBED BY: EPIFANIO DATE: 09/30/16 11.Neuropathy. 12.Peripheral arterial disease of the legs. 13.Retinopathy. 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 Croft. 15.MRSA, Pseudomonas, Acinetobacter. 16.Urinary tract infection with sepsis. 17.Epididymitis. 18.Nonsustained ventricular tachycardia. PAST SURGICAL HISTORY: 1. CABG in 2001. 2. Right rjeea-aqr-ipha amputation with a previous bypass surgeries for peripheral arterial disease. 3. TURP. 4. Cholecystectomy with a transverse colon tear that needed repair as well. ALLERGIES: IV CONTRAST, CODEINE, AND PLAVIX. CODE STATUS: DNR. SOCIAL HISTORY: Quit smoking in 2000 but had been a heavy two-pack per day smoker prior to that. No alcohol use. Is visited by home health care. He is a . Then remarried his current . He has two children. One who lives in [place] and one who lives in [place], [place]. He and his live in [place], [place]. He is wheelchair bound. He is a retired musician, playing the guitar and base. FAMILY HISTORY: Mother and father with coronary artery disease. Sibling with esophageal cancer. CURRENT MEDICATIONS: Include Tylenol, aspirin 325 mg p.o. daily, Calmoseptine ointment, Lasix 20 mg p.o. b.i.d., Neurontin 300 mg p.o. b.i.d., sliding scale insulin, Lantus 14 units subcutaneous twice a day, metoprolol 25 mg p.o. b.i.d., Pravachol 10 mg p.o. daily, Risperdal 1 mg p.o. b.i.d., Zoloft 100 mg p.o. b.i.d., and zinc oxide cream. PHYSICAL EXAMINATION: VITAL SIGNS: Temperature 98.3, pulse 65, blood pressure 134/86, respiratory rate 18, and O2 saturation 89% on room air. GENERAL: An ill-appearing male, in evidence of no particular distress though. HEENT: Pupils equal, round, and reactive to light. No conjunctival pallor. No scleral icterus. Nares are patent. Oropharynx is clear of obstruction. Moist mucous membranes. NECK: Trachea midline. No thyromegaly. LYMPH: No cervical lymphadenopathy. No supraclavicular lymphadenopathy. RESPIRATORY: The patient has scattered rhonchi on examination that predominate but also seems to have wet rales at the base of lungs. No particular wheezes at this time. The patient does have a labored respiratory effort. CARDIOVASCULAR: Regular rate and rhythm. No murmurs, rubs, or gallops. No current extremity edema is appreciated. History And Physical [address] [address] NAME: STANLEY NOVA : 37 STATUS : ADM IN [facility]#: [id number] AGE: 81 ADM/REG DATE : 09/30/16 MR#: [id number] REPORT SERV DATE: 09/30/16 DICTATED BY: LUCINDA GONZÁLES DATE: 09/30/16 REPORT STATUS : Draft TRANSCRIBED BY: EPIFANIO DATE: 09/30/16 ABDOMEN: Soft, nontender, nondistended. Normal bowel sounds auscultated throughout. No hepatosplenomegaly. DERMATOLOGICAL: Warm and dry extremities. No pallor. No cyanosis. PSYCHIATRIC: A very flat affect. He claims to be in a good mood. He is alert and appropriate but poorly oriented to details of time, location, and his recent history. LABORATORY DATA: White blood cell count 11.9, hemoglobin 11.3, hematocrit 34, and platelets 260. Sodium 140, potassium 4.2, chloride 105, bicarb 25, BUN 39, creatinine 1.95, glucose 165, troponin 0.27. ABG demonstrates pH 7.39, a PaCO2 of 39, a PaO2 of 67, and a bicarb of 24 on 2 L nasal cannula. STUDIES: 1. Chest x-ray by my own evaluation shows pulmonary edema, cardiomegaly, likely right middle lobe infiltrate compared to old x-ray. 2. EKG by my own evaluation shows sinus rhythm, left axis deviation, widening of the QRS. ASSESSMENT AND PLAN: 1. Non-ST elevation myocardial infarction. Place on heparin drip IV, aspirin. Obtain a Cardiology consult. 2. Hypoxic respiratory failure. A combination of aspiration and congestive heart failure. Provide supportive care. 3. Aspiration pneumonia. Place on IV Levaquin, IV Flagyl. Obtain a speech therapy evaluation to assist with rehabilitation and management of dysphagia. 4. Systolic congestive heart failure. Ejection fraction 40% to 45%. Place on IV Bumex, nitroglycerin paste. 5. Late effects of stroke. 6. Chronic kidney disease, stage 3. 7. Dementia, Parkinson disease. KPL/MODL Lucinda Gonzáles M.D. / [id number] CC: Andrade Price M.D. John Laramore, M.D.
--- NOTE | ~2016-09-29 | CN ---
Consultation Report [facility] [address] [place]. [address] NAME: STANLEY NOVA : 36 STATUS : ADM IN PAT#: [id number] AGE: 81 ADM/REG DATE : 09/30/16 MR#: [id number] REPORT SERV DATE: 10/01/16 DICTATED BY: SHIRLEY WILLIS DATE: 10/01/16 REPORT STATUS : Draft TRANSCRIBED BY: MODL DATE: 10/01/16 CONSULTATION DATE OF CONSULTATION: REASON FOR CONSULTATION: Acute kidney injury. HISTORY OF PRESENT ILLNESS: This is a very pleasant 81-year-old male patient, who is accompanied by his , who provides the bulk of his medical care. The patient is known to be a DNR, demented, and have Parkinson's. He has historically of late been in rather poor health. The provides care for him at home with the assistance of intermittent family interaction as well as home health. The patient has previously been seen in consultation by Palliative Care who has suggested hospice care. The patient's family member and also said to be the patient, have declined evaluation and care by hospice. The patient lives in a remote area and it is difficult for appropriate services from a palliative perspective to be available to the patient according to the who provides the bulk of his care. Historically, he has failed a swallow evaluation and is known to aspirate. He has declined placement of PEG tube and continues to eat. The patient's who provides the bulk of his care is very aware of his grave medical situation; however, she declines further care from hospice feeling that Hospice Services will primarily provide training to her as opposed to providing assistance. The patient is awake and alert, pleasantly demented, and he does communicate during evaluation. His provides the bulk of his medical information in HPI as he is known to have Parkinson's and dementia. Initial presentation was here at [facility] for complaint of chest pain and shortness of breath. He was seen in consultation by Cardiology who recommended conservative medical treatment considering his advanced dementia and Parkinson's and other medical comorbidities. Echocardiogram has demonstrated an ejection fraction of 40% with anterior septal and inferior septal hypokinesis with an RVSP of 29 mmHg. The patient continues currently on a heparin drip, and he is resting comfortably during evaluation. PAST MEDICAL HISTORY: Positive for dementia as well as Parkinson's, chronic kidney disease stage 3 with baseline creatinine of approximately 1.4 to 1.8. He does not chronically follow with a renal provider as again he lives in a remote area, and it would be difficult for him to be evaluated on a regular basis at office followup. History is also positive for systolic congestive heart failure with last known echo cardiogram as reflected in HPI; aspiration pneumonia with dysphagia with continued oral intake without PEG tube; CABG, followed by Dr. Lester; left frontal and left parietal stroke; dementia as above; peptic ulcer disease with gastric polyps; AVMs of the stomach followed by Dr. Murrieta; colon polyps; diabetes mellitus; Parkinson disease; neuropathy; peripheral artery disease of the legs with a right BKA; retinopathy; diabetic foot ulcers with osteomyelitis and Charcot joints, followed by Dr. Croft; MRSA; Pseudomonas and Citrobacter urinary tract infections with sepsis epididymitis; and nonsustained ventricular tachycardia. PREVIOUS SURGICAL INTERVENTIONS: CABG in 2001, right below-knee amputation with previous Consultation Report [address] [place]. [address] NAME: STANLEY NOVA : 37 STATUS : ADM IN [facility]#: [id number] AGE: 81 ADM/REG DATE : 09/30/16 MR#: [id number] REPORT SERV DATE: 10/01/16 DICTATED BY: SHIRLEY WILLIS DATE: 10/01/16 REPORT STATUS : Draft TRANSCRIBED BY: EPIFANIO DATE: 10/01/16 bypass surgeries for peripheral artery disease, TURP, cholecystectomy, and transverse colon with repair as well. ALLERGIES: HE LISTS ALLERGIES TO IV CONTRAST, CODEINE, AND PLAVIX. CODE STATUS: He is a DNR code status. MEDICATIONS: Active medications as of today's medication record include; aspirin, Lasix, Neurontin, NovoLog via sliding scale, Lopressor, nitroglycerin ointment, Pravachol, Risperdal, Zoloft, Brilinta, Levemir, Levaquin, Flagyl, heparin, p.r.n. antiemetic, anti- pain, anti-nausea and anti-hypoglycemic medications are also available. REVIEW OF SYSTEMS: Review of systems is completed with the assistance of family at bedside as the patient is unable to provide much information due to his current medical state. FAMILY HISTORY: Noncontributory. Not reviewed during this consultation and dictation. SOCIAL HISTORY: The patient lives at home with his who provides the bulk of his medical care with assistance from home health and other family members. No EtOH. No illicit drugs. No tobacco. No chronic use of nonsteroidal medications. PHYSICAL EXAMINATION: VITAL SIGNS: Blood pressure 141/65, temperature 97.0, respiratory rate 18, heart rate 54 beats per minute and regular, and he is 95% on 2 L. GENERAL: He is a chronically ill-appearing, male patient, awake and alert and lying in bed during evaluation. He is known to be chronically demented and have Parkinson's and is again a DNR. HEENT: Normocephalic and atraumatic. Normal ocular movements. No scleral icterus. No conjunctival pallor is appreciated. NECK: Without thyromegaly. No JVD or mass. CHEST: Shows positive S1 and S2. No rubs or gallops. LUNGS: Diminished but clear to auscultation throughout, otherwise with normal expansion and effort bilaterally. No rhonchi or wheezes are noted. GASTROINTESTINAL: Shows positive bowel sounds in all four quadrants. No appreciable mass or tenderness. GENITOURINARY: Deferred. NEUROLOGICALLY: He has no deficits as listed above, but does interact to conversation. SKIN: Warm, dry, and intact to visualized surfaces. No rash, lesions, or ecchymosis. EXTREMITIES: Show positive pulses to all four extremities. No clubbing, cyanosis to upper extremities, left lower extremity. Right lower extremity is amputated below the knee. PSYCHIATRIC: The patient appears to be of reasonably appropriate mood and affect. LABORATORY DATA: Pertinent laboratories and imaging to this evaluation are as follows. CBC shows a white blood cell count of 9.7, RBC 3.62, hemoglobin 10.4, hematocrit 31.1, and Consultation Report [place] [address] [id number] [facility] [place]. [address] NAME: STANLEY NOVA : 37 STATUS : ADM IN [facility]#: [id number] AGE: 81 ADM/REG DATE : 09/30/16 MR#: [id number] REPORT SERV DATE: 10/01/16 DICTATED BY: SHIRLEY WILLIS DATE: 10/01/16 REPORT STATUS : Draft TRANSCRIBED BY: MODL DATE: 10/01/16 platelets 232. Sodium 140, potassium 4.1, chloride 104, CO2 of 25, BUN 48, creatinine 2.36, reflected GFR 25 mL/minute, glucose of 178, and calcium 8.7. Most recent portable chest x-ray shows developing bibasilar atelectasis compared to previous. IMPRESSION AND PLAN: This is a chronic kidney disease stage 3 patient with noted acute kidney injury with multiple comorbid medical problems. He is a DNR. He has a positive history for Parkinson's and dementia and is known to aspirate and declined historically for PEG tube placement. Previous efforts have been made to place the patient on hospice care. The , however, continues to decline that avenue of care and does so this morning. I have contacted Palliative Services during evaluation time and discussed this patient as he is also known to them. Palliative Services have offered previous evaluations to provide for hospice consultation for this patient and have also been declined due to his remote residence, it is difficult for known Palliative Services to our area to be available for regular followup. In consideration of his acute kidney injury, it is likely relatable to fluctuation in his volume. Considering his echo evaluation as well as his chest x-ray, we will not provide IV fluids, we will stop his furosemide and hold it for 24 to 48 hours with resumption post that in hopes that his volume may normalize. As he does not have urinary output listed, it is questionable that he does not have a urinary retention. Given his previous issue with TURP, we will check his postvoid residual and place Jloly catheter if needed. The patient's family is well aware of his current medical status, however, continues to decline care in regard to hospice. Although the patient has been discussed with Palliative Care this afternoon, we will not provide formal palliative care consultation as at this point, it appears their services have been maximized which strongly suggests that this patient undertake hospice consideration. The patient is by no means a dialysis candidate and his family is in agreement with that plan. I will place the patient on strict I's and O's. Check postvoid residual. Stop furosemide 24-48 hours and follow with you. Further modification of treatment plan may be made based on clinical presentation of the patient's laboratory results, further consultation with renal attending. We appreciate consultation. We are glad to follow. DICTATED BY: Nacho Zheng NP JR/EPIFANIO Shirley Willis M.D. / [id number] CC: Andrade Price M.D.
--- NOTE | ~2016-09-29 | DS ---
Discharge Summary [facility] [address] [place]. [address] NAME: STANLEY NOVA : 37 STATUS : DIS IN PAT#: [id number] AGE: 81 ADM/REG DATE : 09/30/16 MR#: [id number] REPORT SERV DATE: 10/08/16 DICTATED BY: CHARITY GUILLEN DATE: 10/07/16 REPORT STATUS : Draft TRANSCRIBED BY: MODL DATE: 10/07/16 ADMISSION DATE: 09/30/2016 DISCHARGE DATE: 10/07/2016 DISCHARGE DIAGNOSES: 1. Non-ST segment elevation myocardial infarction. 2. Acute on chronic systolic and diastolic congestive heart failure. 3. Ischemic cardiomyopathy. 4. Coronary artery disease, post-remote coronary artery bypass graft. 5. Oropharyngeal dysphagia. 6. Recurrent aspiration pneumonia. 7. Percutaneous endoscopic gastrostomy tube declined; bs-[id number] status; hospice declined; previous palliative care consultation during previous hospitalizations. 8. Acute kidney injury. 9. Chronic kidney disease, 3. 10.Uncontrolled hypertension. 11.Vascular dementia with behavioral disorder. 12.Parkinson disease. 13.Peripheral arterial disease with previous right wijnh-gmo-cibq amputation. 14.History of peptic ulcer disease, gastric polyps, gastric arteriovenous malformation, and colon polyps. 15.History of benign prostatic hyperplasia, transurethral resection of prostate, and urinary tract infections. 16.Bowel and bladder incontinence. OPERATIONS AND PROCEDURES: None. PRESENT ILLNESS: This is an 81-year-old white male who was triaged in the emergency room on 09/29/2016 at 2334 hours with chest pain and shortness of breath. Admission vital signs: Blood pressure 134/86, temp 98.3, pulse 65, respirations 18, O2 sat 96% on 2 L. In the emergency room, he was troponin positive. He was referred to the hospitalist service for admission. He was seen by Dr. Ramakrishna Kothari and admitted as described on admission history and physical examination. ADDITIONAL HISTORY: Included increasing shortness of breath for the previous week. He was hospitalized here on 10/21/2015 to 10/25/2015 with sepsis with E coli, urinary tract infection, and epididymo-orchitis. He was admitted here on 01/02/2016 to 01/04/2016, with acute hypoxemic respiratory failure, pulmonary edema, and congestive heart failure. He was here on 02/02/2016 to 02/03/2016, with an E coli urinary tract infection. Discharge Summary [place] [address] [facility] [place]. [address] NAME: STANLEY NOVA : 37 STATUS : DIS IN PAT#: [id number] AGE: 81 ADM/REG DATE : 09/30/16 MR#: [id number] REPORT SERV DATE: 10/08/16 DICTATED BY: CHARITY GUILLEN DATE: 10/07/16 REPORT STATUS : Draft TRANSCRIBED BY: MODAlma DATE: 10/07/16 He was here on 04/17/2016 to 04/20/2016, with acute on chronic congestive heart failure exacerbation. He was here on 05/13/2016 to 05/15/2016, with weakness with hypotension that was IV fluid responsive. He was here on 07/21/2016 to 07/23/2016, with a transient ischemic attack. He was here on 09/10/2016 to 09/16/2016, with aspiration pneumonia. Additional history per Dr. Kothari. PHYSICAL EXAMINATION: Per Dr. Kothari. ADMISSION LABORATORY: Per Dr. Kothari. HOSPITAL COURSE: He was admitted by Dr. Kothari with assessment: 1. Non-ST segment elevation myocardial infarction. 2. Hypoxemic respiration failure. 3. Aspiration pneumonia. 4. Systolic congestive heart failure. 5. All occurring in the setting of the above-mentioned comorbidities. On admission, he was placed on [address]. He was placed on IV heparin drip. He was given aspirin. He was placed on IV Levaquin and Flagyl. He was given IV Bumex and nitroglycerin paste. He was seen in consultation by Nephrology, Dr. Willis, for acute kidney injury; and Cardiology, Dr. Dos Santos, for his non-STEMI. His hospital care from admission through 10/04/2016, is as outlined on the interim summary dictated by Dr. Puentes. His hospital care was assumed by the undersigned on 10/05/2016. He was seen on 10/05/2016, 10/06/2016, and 10/07/2016. He was transitioned off topical nitrates to oral nitrates. His heparin was discontinued. He did not have recurrent chest pain and a troponin on 10/06/2016, had fallen to less than 0.02. He required additional medication to achieve optimal blood pressure control. He had completed an antimicrobial therapy for his aspiration event prior to my assuming his care. He did not have any recurrent fever. A procalcitonin on 10/06/2016, was 0.24. A C- reactive protein which was 95.8 on the 10/06/2016, was 78 on 10/07/2016. Discharge Summary [place] [address] [place]. [address] NAME: STANLEY NOVA : 37 STATUS : DIS IN PAT#: [id number] AGE: 81 ADM/REG DATE : 09/30/16 MR#: [id number] REPORT SERV DATE: 10/08/16 DICTATED BY: CHARITY GUILLEN DATE: 10/07/16 REPORT STATUS : Draft TRANSCRIBED BY: EPIFANIO DATE: 10/07/16 A followup chest x-ray done on 10/06/2016, showed stable patchy consolidation at the left base. Clinically, he had no cough, clear lungs on exam, and a room air saturation of 96%. He had been seen by Palliative Care in the past. Hospice Care had been discussed, but declined. This was revisited, but his did not want to pursue hospice care at this time. Today, it is felt he has achieved a level of improvement in stability where he can be safely transitioned home with home health care. Additional assistance to improve his respiratory status at discharge will be home suctioning with [employer] and home aerosol. He has a hospital bed, walkers, and wheelchairs. DISCHARGE MEDICATIONS: Norvasc 2.5 mg twice daily; aspirin 81 mg daily; Lasix 40 mg twice daily; Neurontin 300 mg twice daily with additional dose as needed for nerve pain; NovoLog level 2 a.c.; Lantus 40 units subcu twice daily; Imdur 60 mg daily; Lopressor 25 mg twice daily; Pravachol 10 mg daily; Risperdal 1 mg at bedtime; Brilinta 90 mg twice daily; DuoNeb every 4 hours while awake; Tylenol 1300 mg every 8 hours as needed; p.r.n. Desitin cream, and Calmoseptine ointment. He is no longer followed in the office setting by his primary care physician, Dr. Biggs, because of transportation and his comorbid conditions. He is at high risk for readmission as noted. DISCHARGE TIME: Greater than 30 minutes. DD/MODL Charity Guillen M.D. / [id number] CC: Andrade Wyman M.D.
[~2016-09-29 23:34] MED LIST changes: +CALMOSEPTINE TOP; +DESITIN TOP; +HEPA50006 SC
[2016-09-30] LABS: BE (BASE EXCESS) -1.1 MEQ/L (0 +/- 2.5); CARBOXYHEMOGLOBIN 1.3 % (0-3); DEVICE NC; HCO3 (ACTUAL BICARBONATE) 23.6 MEQ/L (23-27); HEMOBLOGIN CONTENT 11.9 G/DL (14-18); INSTRUMENT SERIAL # 8087; METHEMOGLOBIN 0.3 % (0-3); O2 CONTENT 15.4 VOL% (18-24); OPERATOR ID 33449; PCO2 (CO2 TENSION) 39 MMHG (35-45); PO2 (O2 TENSION) 67 MMHG (79-93); SAMPLE Arterial
[2016-09-30 00:01] LABS: ALLENS TEST Pos
[2016-09-30 00:18] LABS: BASOPHILS 0.4 %; BASOPHILS ABSOLUTE 0.05 10/3/uL (0.0-0.16); EOSINOPHILS 3.4 %; ER CBC TAT 0 Hrs 06 MiNS; HEMATOCRIT 33.9 % (40.0-51.0); HEMOGLOBIN 11.3 g/dL (13.6-17.8); IMMATURE GRANULOCYTES 0.2 %; IMMATURE GRANULOCYTES ABSOLUTE 0.02 10/3/uL (0.0-0.11); LYMPHOCYTES 29.4 %; LYMPHOCYTES ABSOLUTE 3.48 10/3/uL (0.67-4.30); MANUAL DIFF NO %; MEAN CORPUS HGB CONC 33.3 g/dL (32.0-36.0); MEAN CORPUSCULAR HEMOGLOB 28.6 pg (26.0-34.0); MEAN CORPUSCULAR VOLUME 85.8 fL (80-100); MEAN PLATELET VOLUME 10.1 fL (9.2-13.0); MONOCYTES 6.7 %; MONOCYTES ABSOLUTE 0.79 10/3/uL (0.21-1.20); NEUTROPHILS 59.9 %; NEUTROPHILS ABSOLUTE 7.11 10/3/uL (2.02-8.40); PLATELET COUNT 260 10/3/uL (150-400); RBC DISTRIBUTION WIDTH 15.7 % (12.0-16.0); RED CELL COUNT 3.95 10/6/uL (4.7-6.1); WHITE BLOOD CELLS 11.9 10/3/uL (4.5-10.5)
[2016-09-30 00:23] LABS: INTERNATIONAL NORMAL RATI 1.1 UNITS (-); PARTIAL THROMBO TIME 28.4 SEC (22.5-37.2)
[2016-09-30 00:40] LABS: BUN (BLOOD UREA NITROGEN) 39 MG/DL (6-23); CALCIUM, SERUM 9.1 MG/DL (8.5-10.4); CHEST PAIN PROFILE TAT 0 Hrs 28 Mins; CHLORIDE, SERUM 105 MMOL/L (96-112); CO2 (CARBON DIOXIDE) 25 MMOL/L (24-34); CREATININE 1.95 MG/DL (0.70-1.30); GFR AFRICAN AMERICAN 37 ML/MIN (>=60); GFR NON AFRICAN AMERICAN 32 ML/MIN (>=60); GLUCOSE, SERUM 165 MG/DL (60-99); POTASSIUM, SERUM 4.2 MMOL/L (3.5-5.3); SODIUM, SERUM 140 MMOL/L (135-148); TROPONIN I 0.27 NG/ML (<0.05)
[2016-09-30] MEDS ORDERED: 8 HOUR650 MG PO (01:13)
[2016-09-30] MEDS ORDERED: CALMOSEPTINE O2.5 OZ TOP (01:13)
[2016-09-30] MEDS ORDERED: ASABAYER PO (01:13)
[2016-09-30] MEDS ORDERED: L40 PO (01:14)
[2016-09-30] MEDS ORDERED: NEUR300 PO ×2 (01:14→01:15)
[2016-09-30] MEDS ORDERED: NOVOLOG SC (01:15)
[2016-09-30] MEDS ORDERED: LOP25 PO (01:16)
[2016-09-30] MEDS ORDERED: LANTUSCART SC (01:16)
[2016-09-30] MEDS ORDERED: ZOL100 PO (01:17)
[2016-09-30] MEDS ORDERED: RISP1 PO (01:17)
[2016-09-30] MEDS ORDERED: PRAV10 PO (01:17)
[2016-09-30] MEDS ORDERED: DESITIN TOP (01:18)
[2016-09-30 08:31] LABS: BASOPHILS 0.3 %; BASOPHILS ABSOLUTE 0.02 10/3/uL (0.0-0.16); EOSINOPHILS 0.1 %; EOSINOPHILS ABSOLUTE 0.01 10/3/uL (0.0-0.53); HEMATOCRIT 33.5 % (40.0-51.0); IMMATURE GRANULOCYTES 0.4 %; IMMATURE GRANULOCYTES ABSOLUTE 0.03 10/3/uL (0.0-0.11); LYMPHOCYTES ABSOLUTE 0.87 10/3/uL (0.67-4.30); MANUAL DIFF NO %; MEAN CORPUS HGB CONC 32.8 g/dL (32.0-36.0); MEAN CORPUSCULAR HEMOGLOB 28.2 pg (26.0-34.0); MEAN CORPUSCULAR VOLUME 85.9 fL (80-100); MEAN PLATELET VOLUME 10.1 fL (9.2-13.0); MONOCYTES 1.4 %; MONOCYTES ABSOLUTE 0.11 10/3/uL (0.21-1.20); NEUTROPHILS 86.8 %; NEUTROPHILS ABSOLUTE 6.85 10/3/uL (2.02-8.40); PLATELET COUNT 259 10/3/uL (150-400); RBC DISTRIBUTION WIDTH 15.5 % (12.0-16.0); WHITE BLOOD CELLS 7.9 10/3/uL (4.5-10.5)
[2016-09-30 08:36] LABS: INTERNATIONAL NORMAL RATI 1.1 UNITS (-); PROTIME (NOT ORD) 14.3 SEC (12.0-14.5)
[2016-09-30 08:37] LABS: PARTIAL THROMBO TIME 68.2 SEC (22.5-37.2)
[2016-09-30 08:54] LABS: A/G RATIO 0.5 (0.7-1.9); ALBUMIN 2.8 G/DL (3.5-5.0); ALKALINE PHOSPHATASE 88 U/L (45-117); BUN (BLOOD UREA NITROGEN) 40 MG/DL (6-23); CALCIUM, SERUM 9.2 MG/DL (8.5-10.4); CHLORIDE, SERUM 106 MMOL/L (96-112); CO2 (CARBON DIOXIDE) 24 MMOL/L (24-34); GFR AFRICAN AMERICAN 33 ML/MIN (>=60); GFR NON AFRICAN AMERICAN 29 ML/MIN (>=60); GLOBULIN 5.5 G/DL (2.5-4.1); GLUCOSE, SERUM 282 MG/DL (60-99); SGOT(AST) 16 U/L (5-40); SGPT(ALT) 14 U/L (5-65); SODIUM, SERUM 140 MMOL/L (135-148); TOTAL BILIRUBIN 0.3 MG/DL (0-1.2); TOTAL PROTEIN 8.3 G/DL (6.0-8.5)
[2016-09-30 09:30] LABS: PROCALCITONIN 0.09 ng/mL (<0.5)
[2016-10-01 03:42] LABS: HEMATOCRIT 31.1 % (40.0-51.0); HEMOGLOBIN 10.4 g/dL (13.6-17.8); MEAN CORPUS HGB CONC 33.4 g/dL (32.0-36.0); MEAN CORPUSCULAR HEMOGLOB 28.7 pg (26.0-34.0); MEAN CORPUSCULAR VOLUME 85.9 fL (80-100); MEAN PLATELET VOLUME 10.1 fL (9.2-13.0); PLATELET COUNT 232 10/3/uL (150-400); RBC DISTRIBUTION WIDTH 15.5 % (12.0-16.0); RED CELL COUNT 3.62 10/6/uL (4.7-6.1); WHITE BLOOD CELLS 9.7 10/3/uL (4.5-10.5)
[2016-10-01 03:43] LABS: MANUAL DIFF YES %
[2016-10-01 03:59] LABS: CALCIUM, SERUM 8.7 MG/DL (8.5-10.4); CHLORIDE, SERUM 104 MMOL/L (96-112); CO2 (CARBON DIOXIDE) 25 MMOL/L (24-34); CREATININE 2.36 MG/DL (0.70-1.30); GFR AFRICAN AMERICAN 29 ML/MIN (>=60); GFR NON AFRICAN AMERICAN 25 ML/MIN (>=60); POTASSIUM, SERUM 4.1 MMOL/L (3.5-5.3); SODIUM, SERUM 140 MMOL/L (135-148)
[2016-10-01 04:00] LABS: BUN (BLOOD UREA NITROGEN) 48 MG/DL (6-23); GLUCOSE, SERUM 178 MG/DL (60-99)
[2016-10-01 04:02] LABS: LYMPHOCYTES 22 %; LYMPHOCYTES ABSOLUTE (CALC) 2.13 10/3/uL (0.67-4.30); MONOCYTES 5 %; MONOCYTES ABSOLUTE (CALC) 0.49 10/3/uL (0.21-1.20); NEUTROPHILS ABSOLUTE (CALC) 7.08 10/3/uL (2.02-8.40); PLATELET ESTIMATE ADQ (ADEQUATE); RBC MORPHOLOGY NORM (NORMAL); SEGMENTED NEUTROPHIL (0) 73 %; TOTAL NUCLEATED CELLS 100
[2016-10-02 05:49] LABS: BASOPHILS 0.3 %; BASOPHILS ABSOLUTE 0.02 10/3/uL (0.0-0.16); EOSINOPHILS 4.7 %; EOSINOPHILS ABSOLUTE 0.32 10/3/uL (0.0-0.53); HEMATOCRIT 30.8 % (40.0-51.0); HEMOGLOBIN 10.1 g/dL (13.6-17.8); IMMATURE GRANULOCYTES 0.6 %; IMMATURE GRANULOCYTES ABSOLUTE 0.04 10/3/uL (0.0-0.11); LYMPHOCYTES 19.6 %; LYMPHOCYTES ABSOLUTE 1.33 10/3/uL (0.67-4.30); MEAN CORPUS HGB CONC 32.8 g/dL (32.0-36.0); MEAN CORPUSCULAR HEMOGLOB 28.4 pg (26.0-34.0); MEAN CORPUSCULAR VOLUME 86.5 fL (80-100); MEAN PLATELET VOLUME 10.3 fL (9.2-13.0); MONOCYTES 7.6 %; MONOCYTES ABSOLUTE 0.52 10/3/uL (0.21-1.20); NEUTROPHILS 67.2 %; NEUTROPHILS ABSOLUTE 4.57 10/3/uL (2.02-8.40); PLATELET COUNT 228 10/3/uL (150-400); RED CELL COUNT 3.56 10/6/uL (4.7-6.1); WHITE BLOOD CELLS 6.8 10/3/uL (4.5-10.5)
[2016-10-02 05:53] LABS: MANUAL DIFF NO %
[2016-10-02 06:02] LABS: ALBUMIN 2.6 G/DL (3.5-5.0); BUN (BLOOD UREA NITROGEN) 49 MG/DL (6-23); CHLORIDE, SERUM 105 MMOL/L (96-112); CO2 (CARBON DIOXIDE) 25 MMOL/L (24-34); CREATININE 2.37 MG/DL (0.70-1.30); GFR AFRICAN AMERICAN 29 ML/MIN (>=60); GFR NON AFRICAN AMERICAN 25 ML/MIN (>=60); GLUCOSE, SERUM 153 MG/DL (60-99); POTASSIUM, SERUM 4.3 MMOL/L (3.5-5.3); SODIUM, SERUM 140 MMOL/L (135-148)
[2016-10-02 06:03] LABS: PHOSPHORUS, SERUM 4.1 MG/DL (2.5-4.5)
[2016-10-02 06:17] LABS: PARTIAL THROMBO TIME 96.7 SEC (22.5-37.2)
[2016-10-03 07:58] LABS: BASOPHILS 0.5 %; BASOPHILS ABSOLUTE 0.04 10/3/uL (0.0-0.16); EOSINOPHILS 8.3 %; EOSINOPHILS ABSOLUTE 0.61 10/3/uL (0.0-0.53); HEMATOCRIT 31.7 % (40.0-51.0); HEMOGLOBIN 10.5 g/dL (13.6-17.8); IMMATURE GRANULOCYTES 0.7 %; IMMATURE GRANULOCYTES ABSOLUTE 0.05 10/3/uL (0.0-0.11); LYMPHOCYTES 23.5 %; LYMPHOCYTES ABSOLUTE 1.72 10/3/uL (0.67-4.30); MANUAL DIFF NO %; MEAN CORPUS HGB CONC 33.1 g/dL (32.0-36.0); MEAN CORPUSCULAR HEMOGLOB 28.5 pg (26.0-34.0); MEAN CORPUSCULAR VOLUME 85.9 fL (80-100); MEAN PLATELET VOLUME 10.2 fL (9.2-13.0); MONOCYTES 6.6 %; MONOCYTES ABSOLUTE 0.48 10/3/uL (0.21-1.20); NEUTROPHILS 60.4 %; NEUTROPHILS ABSOLUTE 4.41 10/3/uL (2.02-8.40); PLATELET COUNT 223 10/3/uL (150-400); RBC DISTRIBUTION WIDTH 15.8 % (12.0-16.0); RED CELL COUNT 3.69 10/6/uL (4.7-6.1); WHITE BLOOD CELLS 7.3 10/3/uL (4.5-10.5)
[2016-10-03 08:11] LABS: ALBUMIN 2.4 G/DL (3.5-5.0); CALCIUM, SERUM 9.1 MG/DL (8.5-10.4); CHLORIDE, SERUM 107 MMOL/L (96-112); CO2 (CARBON DIOXIDE) 26 MMOL/L (24-34); CREATININE 2.13 MG/DL (0.70-1.30); GFR AFRICAN AMERICAN 33 ML/MIN (>=60); GFR NON AFRICAN AMERICAN 28 ML/MIN (>=60); GLUCOSE, SERUM 130 MG/DL (60-99); PHOSPHORUS, SERUM 3.2 MG/DL (2.5-4.5); POTASSIUM, SERUM 4.3 MMOL/L (3.5-5.3); SODIUM, SERUM 140 MMOL/L (135-148)
[2016-10-03 08:12] LABS: BUN (BLOOD UREA NITROGEN) 39 MG/DL (6-23)
[2016-10-05 04:29] LABS: BASOPHILS 0.5 %; BASOPHILS ABSOLUTE 0.04 10/3/uL (0.0-0.16); EOSINOPHILS 8.1 %; EOSINOPHILS ABSOLUTE 0.69 10/3/uL (0.0-0.53); HEMATOCRIT 32.7 % (40.0-51.0); HEMOGLOBIN 10.6 g/dL (13.6-17.8); IMMATURE GRANULOCYTES 0.7 %; IMMATURE GRANULOCYTES ABSOLUTE 0.06 10/3/uL (0.0-0.11); LYMPHOCYTES 18.9 %; MEAN CORPUS HGB CONC 32.4 g/dL (32.0-36.0); MEAN CORPUSCULAR HEMOGLOB 28.1 pg (26.0-34.0); MEAN CORPUSCULAR VOLUME 86.7 fL (80-100); MONOCYTES 5.7 %; MONOCYTES ABSOLUTE 0.48 10/3/uL (0.21-1.20); NEUTROPHILS 66.1 %; PLATELET COUNT 228 10/3/uL (150-400); RBC DISTRIBUTION WIDTH 16.2 % (12.0-16.0); RED CELL COUNT 3.77 10/6/uL (4.7-6.1); WHITE BLOOD CELLS 8.5 10/3/uL (4.5-10.5)
[2016-10-05 04:30] LABS: MANUAL DIFF NO %
[2016-10-05 04:39] LABS: CALCIUM, SERUM 9.3 MG/DL (8.5-10.4); CHLORIDE, SERUM 111 MMOL/L (96-112); CO2 (CARBON DIOXIDE) 25 MMOL/L (24-34); CREATININE 1.76 MG/DL (0.70-1.30); GFR AFRICAN AMERICAN 41 ML/MIN (>=60); GFR NON AFRICAN AMERICAN 36 ML/MIN (>=60); GLUCOSE, SERUM 132 MG/DL (60-99); POTASSIUM, SERUM 4.2 MMOL/L (3.5-5.3); SODIUM, SERUM 144 MMOL/L (135-148)
[2016-10-05 04:40] LABS: BUN (BLOOD UREA NITROGEN) 27 MG/DL (6-23)
[2016-10-06 05:56] LABS: BASOPHILS 0.7 %; BASOPHILS ABSOLUTE 0.07 10/3/uL (0.0-0.16); EOSINOPHILS 6.1 %; EOSINOPHILS ABSOLUTE 0.58 10/3/uL (0.0-0.53); HEMOGLOBIN 9.5 g/dL (13.6-17.8); IMMATURE GRANULOCYTES 1.2 %; IMMATURE GRANULOCYTES ABSOLUTE 0.11 10/3/uL (0.0-0.11); LYMPHOCYTES 27.6 %; LYMPHOCYTES ABSOLUTE 2.62 10/3/uL (0.67-4.30); MEAN CORPUS HGB CONC 33.1 g/dL (32.0-36.0); MEAN CORPUSCULAR HEMOGLOB 28.8 pg (26.0-34.0); MEAN PLATELET VOLUME 10.1 fL (9.2-13.0); MONOCYTES ABSOLUTE 0.76 10/3/uL (0.21-1.20); NEUTROPHILS 56.4 %; NEUTROPHILS ABSOLUTE 5.35 10/3/uL (2.02-8.40); PLATELET COUNT 214 10/3/uL (150-400); RBC DISTRIBUTION WIDTH 16.2 % (12.0-16.0); WHITE BLOOD CELLS 9.5 10/3/uL (4.5-10.5)
[2016-10-06 05:57] LABS: HEMATOCRIT 28.7 % (40.0-51.0); MANUAL DIFF NO %
[2016-10-06 06:09] LABS: BUN (BLOOD UREA NITROGEN) 30 MG/DL (6-23); CALCIUM, SERUM 9.8 MG/DL (8.5-10.4); CHLORIDE, SERUM 104 MMOL/L (96-112); CO2 (CARBON DIOXIDE) 27 MMOL/L (24-34); CREATININE 1.86 MG/DL (0.70-1.30); GFR AFRICAN AMERICAN 39 ML/MIN (>=60); GFR NON AFRICAN AMERICAN 33 ML/MIN (>=60); GLUCOSE, SERUM 156 MG/DL (60-99); SODIUM, SERUM 137 MMOL/L (135-148); TROPONIN I <0.02 NG/ML (<0.05)
[2016-10-06 06:19] LABS: C-REACTIVE PROTEIN 95.8 MG/L (<8.0)
[2016-10-06 07:04] LABS: PROCALCITONIN 0.24 ng/mL (<0.5)
[2016-10-07 05:09] LABS: BASOPHILS 0.5 %; BASOPHILS ABSOLUTE 0.05 10/3/uL (0.0-0.16); EOSINOPHILS 4.7 %; EOSINOPHILS ABSOLUTE 0.52 10/3/uL (0.0-0.53); HEMATOCRIT 29.6 % (40.0-51.0); HEMOGLOBIN 9.8 g/dL (13.6-17.8); IMMATURE GRANULOCYTES 0.7 %; IMMATURE GRANULOCYTES ABSOLUTE 0.08 10/3/uL (0.0-0.11); LYMPHOCYTES 19.9 %; LYMPHOCYTES ABSOLUTE 2.21 10/3/uL (0.67-4.30); MEAN CORPUS HGB CONC 33.1 g/dL (32.0-36.0); MEAN CORPUSCULAR HEMOGLOB 28.4 pg (26.0-34.0); MEAN CORPUSCULAR VOLUME 85.8 fL (80-100); MEAN PLATELET VOLUME 10.1 fL (9.2-13.0); MONOCYTES 7.9 %; MONOCYTES ABSOLUTE 0.88 10/3/uL (0.21-1.20); NEUTROPHILS 66.3 %; NEUTROPHILS ABSOLUTE 7.36 10/3/uL (2.02-8.40); PLATELET COUNT 220 10/3/uL (150-400); RBC DISTRIBUTION WIDTH 16.4 % (12.0-16.0); RED CELL COUNT 3.45 10/6/uL (4.7-6.1); WHITE BLOOD CELLS 11.1 10/3/uL (4.5-10.5)
[2016-10-07 05:11] LABS: MANUAL DIFF NO %
[2016-10-07 05:23] LABS: BUN (BLOOD UREA NITROGEN) 30 MG/DL (6-23); CALCIUM, SERUM 9.9 MG/DL (8.5-10.4); CHLORIDE, SERUM 105 MMOL/L (96-112); CO2 (CARBON DIOXIDE) 28 MMOL/L (24-34); CREATININE 1.86 MG/DL (0.70-1.30); GFR AFRICAN AMERICAN 39 ML/MIN (>=60); GFR NON AFRICAN AMERICAN 33 ML/MIN (>=60); GLUCOSE, SERUM 184 MG/DL (60-99); POTASSIUM, SERUM 4.4 MMOL/L (3.5-5.3); SODIUM, SERUM 141 MMOL/L (135-148)
[2016-10-07] MEDS ORDERED: NORV25 PO (10:54)
[2016-10-07] MEDS ORDERED: ASAB PO (10:54)
[2016-10-07] MEDS ORDERED: BRILINTA90 MG PO (10:55)
[2016-10-07] MEDS ORDERED: IMDUR60 PO (10:55)
[2016-10-07] MEDS ORDERED: DUONEB INH (10:56)
[2017-01-02] MEDS ORDERED: ACET500CAP PO (20:15)
[2017-01-02] MEDS ORDERED: NORV25 PO (20:16)
[2017-01-02] MEDS ORDERED: ASAB PO (20:16)
[2017-01-02] MEDS ORDERED: CALMOSEPTINE O2.5 OZ TOP (20:17)
[2017-01-02] MEDS ORDERED: L40 PO (20:17)
[2017-01-02] MEDS ORDERED: NEUR300 PO ×2 (20:17)
[2017-01-02] MEDS ORDERED: RISP1 PO (20:18)
[2017-01-02] MEDS ORDERED: ZOL100 PO (20:18)
[2017-01-02] MEDS ORDERED: PRAV10 PO (20:18)
[2017-01-02] MEDS ORDERED: LANTUS SC (20:18)
[2017-01-02] MEDS ORDERED: NOVOLOG SC (20:18)
[2017-01-02] MEDS ORDERED: BRILINTA90 MG PO (20:19)
[2017-01-02] MEDS ORDERED: HARD NAILS PO (20:19)
[2017-01-02] MEDS ORDERED: LOP25 PO (20:20)
== END 2016-10-07 12:45 | disposition home health service (06) | DRG 177 ==
LOC: ER 23:34 → 7NO 09-30 02:02 → 6NO 09-30 02:37
PROVIDERS: Emergency Medicine; Internal Medicine
DX: J69.0 Pneumonitis due to inhalation of food and vomit (principal); I21.4 Non-ST elevation (NSTEMI) myocardial infarction; J96.01 Acute respiratory failure with hypoxia; I50.43 Acute on chronic combined systolic (congestive) and diastolic (congestive) heart failure; N17.9 Acute kidney failure, unspecified; F01.51 Vascular dementia, unspecified severity, with behavioral disturbance; I13.0 Hypertensive heart and chronic kidney disease with heart failure and stage 1 through stage 4 chronic kidney disease, or unspecified chronic kidney disease; F02.81 Dementia in other diseases classified elsewhere, unspecified severity, with behavioral disturbance; N18.4 Chronic kidney disease, stage 4 (severe); I69.919 Unspecified symptoms and signs involving cognitive functions following unspecified cerebrovascular disease; G20 Parkinson's disease; I73.9 Peripheral vascular disease, unspecified; Z66 Do not resuscitate; I25.5 Ischemic cardiomyopathy; E11.319 Type 2 diabetes mellitus with unspecified diabetic retinopathy without macular edema; E11.40 Type 2 diabetes mellitus with diabetic neuropathy, unspecified; R13.10 Dysphagia, unspecified; D64.9 Anemia, unspecified; E11.22 Type 2 diabetes mellitus with diabetic chronic kidney disease; Z89.511 Acquired absence of right leg below knee; Z89.611 Acquired absence of right leg above knee; Z90.49 Acquired absence of other specified parts of digestive tract; Z88.8 Allergy status to other drugs, medicaments and biological substances; Z88.5 Allergy status to narcotic agent; Z91.041 Radiographic dye allergy status; Z87.11 Personal history of peptic ulcer disease; Z86.14 Personal history of Methicillin resistant Staphylococcus aureus infection; Z86.010 Personal history of colon polyps; Z87.891 Personal history of nicotine dependence; Z99.3 Dependence on wheelchair
CPT/HCPCS: 36600; 71010; 80048; 80053; 80069; 82805; 82962; 83605; 83735; 83880; 84145; 84443; 84484; 85025; 85610; 85730; 86140; 93005; 94640; 96374; 99291; A9270-GY; C8929; J0360; J1956; J2250; J2405; J2543; J2710; J2930; J3010; Q9957